=== PATIENT | female | born 2000 | race African-American/Black ===

== ENCOUNTER 2020-04-14 16:30 | Emergency (ER) | payer OTHER, MEDICAID ==
[~2020-04-14] VITALS: Ht 177.8 cm; Wt 81.7 kg
[~2020-04-14 16:30] MED LIST: AMOXICILLI400 MG/5 M PO; AMOXICILLIN 50500 M1 PO; FLAGYL500 MG PO; IBUPROFEN 800800 MG PO; MEDROLDOSEPACK PO; NOHOMEMEDICATIONS; TOBRADEX ST EYE5 ML OP; ZPAK PO
[2020-04-14] MEDS ORDERED: LIPITOR10 MG PO (16:39)
[2020-04-14 16:55] LABS: ABSOLUTE BASOPHILS 0.1 thou/uL (0.0-0.2); ABSOLUTE EOSINOPHILS 0.1 thou/uL (0.0-0.7); ABSOLUTE LYMPHOCYTES 1.6 thou/uL (0.8-5.3); ABSOLUTE MONOCYTES 0.5 thou/uL (0.0-1.2); ABSOLUTE NEUTROPHILS 2.6 thou/uL (1.6-8.1); BASOPHILS 1.1 %; EOSINOPHILS 1.2 %; HEMATOCRIT 31.8 % (37.0-47.0); HEMOGLOBIN 10.9 gm/dL (12.0-15.0); LYMPHOCYTES 33.4 %; MCH 32.2 pg (26.0-34.0); MCHC 34.2 g/dL (28.0-37.0); MCV 94.2 fL (80.0-100.0); MONOCYTES 10.1 %; MPV 8.9 fl. (7.2-11.1); NUCLEATED RBCS 0 /100WBC; PLATELET COUNT* 224 thou/uL (150-400); POLYS 54.2 %; RBC 3.38 mil/uL (4.20-5.00); RDW-CV 13.5 % (10.5-14.5); WBC 4.8 thou/uL (4.0-11.0)
[2020-04-14 17:01] LABS: CALCIUM 8.3 mg/dL (8.5-10.1); CREATININE 0.8 mg/dL (0.6-1.3); POTASSIUM 3.8 mmol/L (3.5-5.1)
[2020-04-14 17:05] LABS: ALBUMIN 3.8 g/dL (3.4-5.0); TOTAL BILIRUBIN 0.5 mg/dL (<0.1-1.0); TOTAL PROTEIN 7.3 g/dL (6.4-8.2)
[2020-04-14 18:50] VITALS: BP 155/77
--- NOTE | 2020-04-16 11:32 | EKG ---
[place] [address] ELECTROCARDIOGRAM REPORT Name: DAREN GIMENEZ Room: [facility]#: [id number] Admission: 04/14/20 Attend Phys: Discharge: 04/14/20 Date of : [birth year] Date of Service: 04/14/20 1636 Report #: [id number] THIS REPORT FOR: //name// [facility] ED Test Date: 2020-04-14 Test Time: 16:36:05 Pat Name: DAREN GIMENEZ Department: Room: Gender: Retail Training Manager: VISHAL : 2000 Requested By: Lynne Anne Order Number: [id number] MD: Austin Harley Measurements Intervals [place] Rate: 73 P: 31 W[place]: 130 QRS: 62 QRSD: 88 T: 24 QT: 377 QTc: 416 Interpretive Statements Sinus rhythm Probable left atrial enlargement No previous ECG available for comparison Electronically Signed On 04-16-2020 11:31:56 HOSPITALIST PHYSICIAN by Austin Harley [email or web address] <ELECTRONICALLY SIGNED> By: Austin Harley MD, [facility] 04/16/20 1131 D: 11/1635 35 Austin Harley MD, FACC /EPI
== END 2020-04-14 18:53 | disposition home or self-care (01) ==
LOC: M.ERS 16:30
PROVIDERS: Physician Assistant
DX: R07.9 Chest pain, unspecified (principal); R06.00 Dyspnea, unspecified; I10 Essential (primary) hypertension